=== PATIENT | female | born 1980 | race Caucasian/White ===

== ENCOUNTER 2021-11-12 23:02 | Observation (INO) ==
[2021-11-12 23:56] LABS: Mucus,Urine Occasional /LPF (Occasional); RBC,Urine 1 /HPF (0-4); Squamous Epithelial Cell,Urine Occasional /HPF (0-10); Urine Appearance Clear (Clear); Urine Color Yellow (Yellow)
[2021-11-12 23:57] LABS: Bilirubin,Urine Negative (Negative); Blood, Urine Negative (Negative); Glucose,Urine (UA) Negative (Negative); Ketones,Urine Negative (Negative); Nitrite,Urine Negative (Negative); Protein,Urine Negative (Negative)
[2021-11-13 00:04] LABS: Alanine Aminotransferase 24 U/L (13-56); Albumin 3.6 G/DL (3.4-5.0); Alkaline Phosphatase 107 U/L (45-117); Aspartate Amino Transferase 11 U/L (0-37); Bilirubin,Total < 0.39 MG/DL (0.20-1.00); Blood Urea Nitrogen 10 MG/DL (7-18); Calcium 8.8 MG/DL (8.5-10.1); Carbon Dioxide 27 MMOL/L (21-32); Estimated Glom Filtration Rate 114 ML/MIN; Glucose 83 MG/DL (74-106); Osmolality,Calculated 272.7 MOS/KG (273-304); Salicylate < 2.8 MG/DL (2.8-20); Sodium 138 MMOL/L (136-145); Total Protein 7.1 G/DL (6.4-8.2)
[2021-11-13 00:05] LABS: Acetaminophen < 2.0 UG/ML (10-30)
[2021-11-13 00:10] LABS: Barbiturates Screen,Urine Negative (Negative); Benzodiazepines Screen,Urine Positive (Negative); Cannabinoid Screen,Urine Negative (Negative); Opiate Screen,Urine Negative (Negative); Phencyclidine Screen,Urine Negative (Negative)
[2021-11-13 00:19] LABS: Basophils % 0.3 % (0.0-0.8); Eosinophils % 0.1 % (0.00-10.9); Hematocrit 36.6 VOL% (35.7-47.0); Hemoglobin 11.7 GM/DL (12.0-16.0); Immature Granulocytes % 0.3 %; Immature Granulocytes Absolute 0.02 #; Lymphocytes # 1.7 10*3/uL (1.4-4.0); Lymphocytes % 22.8 % (21.3-54.2); Mean Corpuscular Volume 86.7 FL (87-102); Mean Platelet Volume 9.6 FL (9.6-12.0); Monocytes % 5.5 % (1.7-12.7); Platelet Count 341 T/CUMM (130-400); Red Blood Count 4.22 MC/CUMM (3.8-5.5); Red Cell Distribution Width 15.1 % (9.3-17.3); White Blood Count 7.3 T/CUMM (4-12)
[2021-11-13] MEDS ORDERED: ONDANSETRON 4 MG/2 ML VIAL IV PRN (01:05)
[2021-11-13] MEDS ORDERED: ACETAMINOPHEN 325 MG TABLET PO PRN (01:05)
[2021-11-13] MEDS: ENOXAPARIN 40 MG/0.4 ML SYRINGE SUBCUT SCH (02:23)
[2021-11-13] MEDS: oxyCODONE/ACETAMINOPHEN 5-325 MG TABLET PO PRN ×4 (02:23→19:55)
[2021-11-13] MEDS: ALPRAZolam 0.5 MG TABLET PO SCH ×3 (08:43→21:15)
[2021-11-13] MEDS ORDERED: PANTOPRAZOLE 40 MG TABLET PO SCH (09:00)
[2021-11-13] MEDS ORDERED: busPIRone 15 MG TABLET PO SCH (09:00)
[2021-11-13] MEDS ORDERED: AMITRIPTYLINE 75 MG TABLET PO SCH (21:00)
[2021-11-13] MEDS ORDERED: PROPRANOLOL 20 MG TABLET PO SCH (21:00)
[2021-11-14] MEDS: ENOXAPARIN 40 MG/0.4 ML SYRINGE SUBCUT SCH (02:40)
[2021-11-14] MEDS ORDERED: CLORAZEPATE 7.5 MG TABLET PO STA (02:51)
[2021-11-14] MEDS ORDERED: CLORAZEPATE 3.75 MG TABLET ONE (02:53)
[2021-11-14 03:10] VITALS: BP 127/74
== END 2021-11-14 03:00 ==
LOC: EDUNIT# → EDBD → N.EDINP 23:02 → N.ED 23:02 → N.EDINP 11-14 03:00
PROVIDERS: ADMIT Internal Medicine; ATTEND Internal Medicine